=== PATIENT | female | born 1965 | race Caucasian/White ===

== ENCOUNTER 2025-02-27 15:40 | Emergency (ER) | payer OTHER ==
[~2025-02-27] VITALS: Ht 152.4 cm; Wt 54.0 kg
[2025-02-27 16:07] VITALS: TEMP 36.7; O2SAT 99
[2025-02-27 17:04] LABS: BASOPHILS % 0.8 % (0.0-2.0); EOSINOPHILS % 1.7 % (0.0-5.0); HEMATOCRIT. 39.6 % (36.0-48.0); HEMOGLOBIN. 13.2 g/dL (12.0-16.0); LYMPHOCYTES % 20.2 % (20.0-50.0); MEAN PLATELET VOLUME 8.9 fl (7.4-10.4); MONOCYTES % 9.4 % (2.0-8.0); NEUTROPHILS % 67.9 % (40.0-76.0); PLATELET 218 x1000/uL (130-400); RED BLOOD CELL COUNT 4.35 mill/uL (4.2-5.4); RED CELL DISTRIBUTION WIDTH 13.4 % (11.6-14.6)
[2025-02-27 17:17] LABS: CREATININE 0.6 mg/dL (0.6-1.0); TROPONIN I HIGH SENSITIVITY < 4 ng/L (3.0-34); UREA NITROGEN BLOOD 10 mg/dL (9-23)
[2025-02-27 18:58] VITALS: BP 127/86; PULSE 83; RESP 12; O2SAT 99
== END 2025-02-27 19:02 | disposition home or self-care (01) ==
LOC: ER 15:40
DX: R55 Syncope and collapse (principal); I10 Essential (primary) hypertension; R56.9 Unspecified convulsions; Z90.49 Acquired absence of other specified parts of digestive tract; Z90.710 Acquired absence of both cervix and uterus
CPT/HCPCS: 36415; 80048; 82962; 84484; 85025; 93005; 99284